=== PATIENT | female | born 1940 | race Two or more races ===

== ENCOUNTER → 2023-12-08 | Emergency (ER) | payer OTHER ==
[~2023-12-08] VITALS: Ht 149.9 cm; Wt 50.8 kg
[~2023-12-08] MED LIST: ABANEU-SL TABL1 EACH SL; AMLODIPINE-BEN1 EAC2 PO; CIPRO500 MG PO; LEVOTHYROXINE25 MC2 PO; LEVSIN/SL0.125 MG SL; METFORMIN HCL850 M1 PO; METRONIDAZOLE500 MG PO; OMEPRAZOLE20 MG PO; PRILOSEC OTC20 MG PO; SIMVASTATIN20 MG PO
[2023-12-08 11:24] LABS: HEMATOCRIT 40.6 % (36.0-45.00); HEMOGLOBIN 13.5 g/dL (12.0-15.00); MEAN CELL VOLUME 88.4 fL (80.00-100.00); MEAN CORPUSCULAR HEMOGLOBIN 29.3 pg (27.00-32.0); MEAN CORPUSCULAR HGB CONC 33.2 g/dl (32.0-36.0); PLATELET COUNT 276 K/uL (150-450); RED BLOOD COUNT 4.59 M/uL (4.00-6.00); RED CELL DISTRIBUTION WIDTH 14.1 % (11.5-14.5)
[2023-12-08 11:30] LABS: PH,URINE 5.5 (5.0-8.0); URINE APPEARANCE Clear; URINE BILIRRUBIN Negative (NEGATIVE); URINE BLOOD Small; URINE COLOR Yellow; URINE GLUCOSE Negative (NEGATIVE); URINE LEUKOCYTE Trace; URINE NITRATE Negative; URINE PROTEIN 30 (NEGATIVE); URINE UROBILINOGEN 0.2 E.U./dl
[2023-12-08 11:34] LABS: URINE BACTERIA 196.5 uL (0.0-1933); URINE EPITHELIAL CELLS 20.5 uL (0.0-38.8); URINE RBC 12.2 uL (0.0-20.8)
[2023-12-08 12:09] LABS: ALBUMIN 3.5 gm/dL (3.4-5.0); BILIRUBIN TOTAL 0.68 mg/dL (0.3-1.2); CALCIUM 10.2 mg/dL (8.5-10.1); CREATININE SERUM 0.62 mg/dL (0.55-1.02); GFR 92.15; GLOBULINA 4.5 G/DL (2.4-3.5); POTASSIUM 4.08 mEq/L (3.5-5.1)
== END | disposition home or self-care (01) ==
LOC: ER 09:38
PROVIDERS: General Practice
DX: K57.32 Diverticulitis of large intestine without perforation or abscess without bleeding (principal); R10.32 Left lower quadrant pain; E11.9 Type 2 diabetes mellitus without complications; K44.9 Diaphragmatic hernia without obstruction or gangrene
CPT/HCPCS: 36415; 74176; 96365; 99284; J7030